=== PATIENT | female | born 1960 | race Caucasian/White ===

== ENCOUNTER → 2018-03-20 13:04 | Outpatient (CLI) | payer MEDICARE, SELFPAY ==
[2018-03-20 13:33] LABS: International Normalized Ratio 2.3; Prothrombin Time (Protime)PT. 25.4 SECONDS (11.7-14.9)
== END ==
PROVIDERS: Family Provider Internal Medicine; PCP Internal Medicine; Visit Provider Internal Medicine
DX: I26.99 Other pulmonary embolism without acute cor pulmonale (principal); Z51.81 Encounter for therapeutic drug level monitoring; Z79.01 Long term (current) use of anticoagulants
CPT/HCPCS: 85610

== ENCOUNTER 2021-09-30 14:02 | Outpatient (CLI) | payer MEDICARE, SELFPAY ==
--- NOTE | 2021-09-30 14:08 | US_ITS ---
STUDY: RENAL ULTRASOUND - COMPLETE REASON FOR EXAM: Female, 61 years old. UTI TECHNIQUE: Ultrasound evaluation of the kidneys was performed with real-time and static wallace-scale imaging. COMPARISON: None. FINDINGS: Study is limited by extremely large body habitus. RIGHT KIDNEY: Normal location of the right kidney, which is normal in size. The right kidney measures 10.8 x 6.4 x 5.5 cm. There is a normal cortex of the right kidney. The renal cortex measures 1.8 cm. In thickness There is no right renal mass or cyst. There are no right renal calculi. There is no right hydronephrosis. LEFT KIDNEY: Normal location of the left kidney, which is normal in size. The left kidney measures 11.3 x 5.6 x 6.6 cm. There is a normal cortex of the left kidney. The renal cortex measures 2.0 cm. In thickness There is no left renal mass or cyst. There are no left renal calculi. There is no left hydronephrosis. BLADDER: Not visualized. US/Kidney and Bladder IMPRESSION: Limited study due to body habitus. Normal size kidneys. No hydronephrosis. Electronically Signed: Virgilio Kwok MD at 1:44 EDT ,
== END 2021-09-30 23:59 | disposition home or self-care (01) ==
LOC: US 14:03
PROVIDERS: PCP Internal Medicine; Referring Provider Urology; Visit Provider Urology
DX: N39.0 Urinary tract infection, site not specified (principal)
CPT/HCPCS: 76770

== ENCOUNTER 2022-10-07 19:56 | Emergency (ER) | payer MEDICARE, SELFPAY ==
[2022-10-07 19:57] VITALS: PULSE 98; RESP 24; TEMP 36.6; O2SAT 96
[2022-10-07] MEDS: Mixture 30 ML Bottle TOPICAL (21:00)
[2022-10-07] MEDS: Silver Nitrate (BKC) 1 EACH TOPICAL (21:04)
[2022-10-07 21:06] LABS: Absolute Neutrophil Count 5.4 X10^3/uL (2.0-7.7); Basophil# 0.04 X10^3/uL; Basophil% 0.5 % (0-1); Eosinophil# 0.21 X10^3/uL; Eosinophils% 2.6 % (0-5); Hematocrit 47.3 % (37-47); Hemoglobin 15.6 g/dL (12.0-15.0); Lymphocyte % 21.4 % (19-41); Mean Corpuscular Hgb 28.6 pg (27.0-32.0); Mean Corpuscular Volume 86.8 fL (81-99); Mean Platelet Vol. 10.1 fl (6.2-12.0); Monocyte# 0.55 X10^3/uL; Monocyte% 6.9 % (0-10); NRBC Flagged by Analyzer 0 % (0-5); Neutrophil # 5.41 X10^3/uL (2.7-7.7); Neutrophil % 68.2 % (47-70); Platelet Count 288 K/mm3 (150-450); RBC Distribution Width CV 13.2 % (11.6-14.6); RBC Distribution Width SD 41.5 fl (35.1-43.9); Red Blood Count 5.45 M/mm3 (4.2-5.4); White Blood Count 7.9 K/mm3 (4.4-11.0)
[2022-10-07 21:21] LABS: International Normalized Ratio 2.3; Prothrombin Time (Protime)PT. 25.1 SECONDS (11.7-14.9)
--- NOTE | 2022-10-07 22:14 | EX.ED.DYSGE1 ---
HPI History of Present Illness Chief Complaint: Nosebleed Informant: patient Onset/Context/Timing Onset: Today Context: Sudden Onset Timing: Continuous Quality: Dark blood Location: Right nares Worsened by: Bending forward Relieved by: Nothing Narrative Narrative: Patient presents with epistaxis that began today. Patient states it began rather suddenly. Patient states it is mainly coming from the right nares. Patient states it is worse whenever she bends forward. Patient states she is on Coumadin for pulmonary embolism. Patient states her medication was adjusted recently. Patient denies any trauma or injury. Patient denies any fevers or chills. Patient denies any cough or shortness of breath. [facility] Medical History (Updated 10/07/22 @ 22:[address] Freddy Calloway, DO) Fibromyalgia Lupus Pulmonary embolism Rheumatoid arthritis Home Medications Losartan/Hydrochlorothiazide [Hyzaar 50-12.5 Tablet] 1 tab PO DAILY 09/10/15 [History Last Taken Unknown] cholecalciferol (vitamin D3) 25 mcg (1,000 unit) tablet (Vitamin D3) 2,000 unit PO DAILY 09/10/15 [History Last Taken Unknown] cyanocobalamin (vitamin B-12) 1,000 mcg sublingual tablet 5,000 mcg sublingual DAILY 09/10/15 [History Last Taken Unknown] fluoxetine 20 mg capsule 40 mg PO DAILY 09/10/15 [History Last Taken Unknown] insulin glargine 100 unit/mL (3 mL) subcutaneous pen (Lantus Solostar U-100 Insulin) 22 units subcut QHS 09/10/15 [History Last Taken 09/09/15] lactobacillus combo no.11 15 billion cell sprinkle capsule (Probiotic) 1 ea PO DAILY 09/10/15 [History Last Taken Unknown] lorazepam 1 mg tablet 1 mg PO DAILY PRN PANIC ATTACKS 09/10/15 [History Last Taken Unknown] oxycodone-acetaminophen 5 mg-325 mg tablet 1 tab PO DAILY PRN Pain 09/10/15 [History Last Taken Unknown] prednisone 5 mg tablet 5 mg PO DAILY PRN LUPUS 09/10/15 [History Last Taken Unknown] warfarin 5 mg tablet (Jantoven) 5 mg PO DAILY 09/10/15 [History Last Taken Unknown] zolpidem 10 mg tablet (Ambien) 10 mg PO QHS PRN Insomnia 09/10/15 [History Last Taken Unknown] Allergy/AdvReac Type Severity Reaction Status Date / Time enoxaparin sodium Allergy Hives Verified 10/07/22 20:11 [From Lovenox] heparin Allergy Itching Verified 10/07/22 20:11 hydrocodone bitartrate Allergy Itching Verified 10/07/22 20:11 [From Vicodin] Penicillins Allergy Hives Verified 10/07/22 20:11 Sulfa (Sulfonamide Allergy Itching Verified 10/07/22 20:11 Antibiotics) Surgical History H/O total hysterectomy History of appendectomy History of tonsillectomy Hx of cholecystectomy Social History Smoking Status: Never smoker ROS ROS ED Constitutional Constitutional ED: Denies chills or fever(s) Eyes Eyes: Denies blurry vision or change in vision ENT ENT ED: Reports epistaxis; Denies sore throat Cardiovascular Cardiovascular: Denies chest pain or palpitations Respiratory/Chest Respiratory/Chest: Denies cough or dyspnea Gastrointestinal Gastrointestinal: Denies nausea or vomiting Genitourinary Genitourinary ED: Denies dysuria or hematuria Musculoskeletal Musculoskeletal: Denies back pain or neck pain Integumentary Denies abscess or rash Neurologic Neurologic: Denies headache(s) or weakness Allergic/Immunologic Allergic/Immunologic ED: Denies mouth swelling or urticaria EXAM Physical Exam Const Vital Signs: 10/07/22 19:57 Temperature 98 F Temperature Source Temporal Pulse Rate 98 Respiratory Rate 24 H Pulse Ox 96 Oxygen Delivery Method Room Air Positive well nourished, well developed and obese General Appearance ED: well developed and NAD Nutritional Appearance: obese HEENT Reports moist mucous membranes HEENT Narrative: There is active bleeding from the right nares. It appears to be coming from somewhere posterior to the [place]el[place] plexus. There is no septal deviation or septal perforation. There does not appear to be any active bleeding from the left nares. There appears to be coming from the right nares around the nasopharynx. There is some bloody drainage in the posterior oropharynx. Neck supple and no JVD Neuro oriented x3, CN's II-XII intact bilaterally and no sensory deficits noted Sensorium / Orientation: alert Motor Exam: strength 5/5 throughout Psych mental status grossly normal Skin no rashes or lesions noted MDM MDM MDM Narrative Medical decision making narrative: Differential diagnosis includes epistaxis, anemia, and Coumadin induced coagulopathy. CBC will be obtained to assess for anemia and leukocytosis. PT with INR will be obtained to assess for coagulopathy. Lab Data Attestation: I reviewed the patient's lab results. Lab results narrative: CBC was reviewed. Hemoglobin was stable at 15.6 hematocrit was 47.3. Platelets were normal. PT with INR was reviewed. Pro time was 25.1. INR is 2.3. Labs: Laboratory Results - last 24 hr 10/07/22 10/07/22 21:00 21:00 WBC 7.9 RBC 5.45 H Hgb 15.6 H Hct 47.3 H MCV 86.8 MCH 28.6 MCHC 33.0 RDW Std Deviation 41.5 RDW Coeff of Lisha 13.2 Plt Count 288 MPV 10.1 Immature Gran % (Auto) 0.400 Neut % (Auto) 68.2 Lymph % (Auto) 21.4 Simpson % (Auto) 6.9 Eos % (Auto) 2.6 Baso % (Auto) 0.5 Absolute Neuts (auto) 5.4 Absolute Lymphs (auto) 1.70 Nucleated RBC % 0 PT 25.1 H INR 2.3 Treatment and Re-Evaluation :: Kwadwo solution was applied to cotton balls. These were inserted into the nares bilaterally. Bleeding slowed down. I was able to visualize the anterior nasal septum. The bleeding appeared to be coming from somewhere posterior to this. It was not pulsatile or brisk. Patient initially did not want a balloon packing because of the pain. Therefore, a small anterior rapid Rhino packing was placed in the right anterior nares. Patient was unable to tolerate this and accidentally pulled it out. Because of this, a 7.5 cm anterior posterior balloon nasal packing with airway was placed. The balloon was inflated for the patient's tolerance. There is no further epistaxis noted. Patient feels better and wants to go home. Patient was instructed to follow-up with her primary care physician in 3 to 5 days. Patient was also given referral for ENT follow-up in 2 days to have the packing removed. Patient was also instructed to return here if worse in any way. Patient understood and was agreeable with the plan. All questions were answered. Discharge Plan Triage Chief Complaint: Nosebleed ED Provider: Freddy Calloway Dx/Rx/DC Orders Clinical Impression: Epistaxis, Morbid obesity Instructions: ED Epistaxis (Adult) Prescriptions: No Action prednisone 5 MG tablet 5 mg PO DAILY PRN (Reason: LUPUS) oxycodone-acetaminophen 1 TABLET tablet 1 tab PO DAILY PRN (Reason: Pain) warfarin [Jantoven] 5 MG tablet 5 mg PO DAILY cyanocobalamin (vitamin B-12) 1,000 MCG tablet, sublingual 5,000 mcg sublingual DAILY lorazepam 1 MG tablet 1 mg PO DAILY PRN (Reason: PANIC ATTACKS) zolpidem [Ambien] 10 MG tablet 10 mg PO QHS PRN (Reason: Insomnia) fluoxetine 20 MG capsule 40 mg PO DAILY cholecalciferol (vitamin D3) [Vitamin D3] 1,000 UNIT tablet 2,000 unit PO DAILY lactobacillus combo no.11 [Probiotic] 1 EACH capsule, sprinkle 1 ea PO DAILY Losartan/Hydrochlorothiazide [Hyzaar 50-12.5 Tablet] 1 TAB tablet 1 tab PO DAILY insulin glargine [Lantus Solostar U-100 Insulin] 100 UNITS/ML insulin pen 22 units subcut QHS Primary Care Provider: Leonela Rai Referrals: Ish Burkett MD [Med Staff - Active Staff] - 2 Days Leonela Rai MD [Primary Care Provider] - 3-5 Days Disposition Disposition: Home, Self Care
[2022-10-07 22:24] VITALS: RESP 22
[2022-10-07 22:30] VITALS: BP 167/125; PULSE 107; RESP 20; O2SAT 94
[2022-10-07] MEDS: Morphine 4 MG/ML Syringe IM (22:36)
[2022-10-07 23:04] VITALS: PULSE 106; RESP 20; O2SAT 94
--- NOTE | 2022-10-07 23:05 | ED.RN ---
IM SITE CHECKED (RIGHT DELTOID) PT DENIES PAIN AT SITE PRIOR TO DISCHARGE. SITE P/W/D, COVERED WITH BANDAID.
== END 2022-10-07 23:11 | disposition home or self-care (01) ==
PROVIDERS: Emergency Provider Emergency Medicine; PCP Internal Medicine; Visit Provider Emergency Medicine
DX: R04.0 Epistaxis (principal); E66.01 Morbid (severe) obesity due to excess calories
CPT/HCPCS: 30901; 36415; 85025; 85610; 96372; 99282

== ENCOUNTER → 2022-11-23 | Outpatient (CLI) | payer MEDICARE, SELFPAY | END | disposition home or self-care (01) | LOC: CT 17:07 | PROVIDERS: PCP Internal Medicine; Referring Provider Urology; Visit Provider Urology | DX: N30.20 Other chronic cystitis without hematuria (principal); R31.0 Gross hematuria | CPT/HCPCS: 87086 ==

== ENCOUNTER 2024-05-15 10:43 | Outpatient (RCR) | payer MEDICARE, SELFPAY ==
[2024-05-15 12:33] LABS: International Normalized Ratio 2.4; Prothrombin Time (Protime)PT. 25.6 SECONDS (11.7-14.9)
== END 2024-06-02 18:00 | disposition home or self-care (01) ==
LOC: MTLAB 10:43
PROVIDERS: PCP Internal Medicine; Referring Provider Internal Medicine; Visit Provider Internal Medicine
DX: Z79.01 Long term (current) use of anticoagulants (principal)
CPT/HCPCS: 36415; 85610

== ENCOUNTER → 2024-11-28 | Outpatient (CLI) | payer MEDICARE, SELFPAY | END | disposition home or self-care (01) | LOC: SL 19:54 | PROVIDERS: PCP Internal Medicine; Referring Provider Nurse Practitioner Adult Health; Visit Provider Nurse Practitioner Adult Health | DX: G47.33 Obstructive sleep apnea (adult) (pediatric) (principal); G47.19 Other hypersomnia; G25.81 Restless legs syndrome; G47.61 Periodic limb movement disorder | CPT/HCPCS: 95810 ==

== ENCOUNTER 2025-03-20 13:40 | Outpatient (RCR) | payer MEDICARE, SELFPAY ==
[2025-03-20 15:43] LABS: Prothrombin Time (Protime)PT. 25.9 SECONDS (11.7-14.9)
[2025-04-12 19:35] LABS: Prothrombin Time (Protime)PT. 24.7 SECONDS (11.7-14.9)
== END 2025-04-12 14:07 | disposition home or self-care (01) ==
LOC: MTLAB 13:40
PROVIDERS: PCP Internal Medicine; Referring Provider Internal Medicine; Visit Provider Internal Medicine
DX: Z79.01 Long term (current) use of anticoagulants (principal)
CPT/HCPCS: 36415; 85610

== ENCOUNTER 2025-06-11 14:51 | Outpatient (RCR) | payer MEDICARE, SELFPAY ==
[2025-06-11 19:26] LABS: Prothrombin Time (Protime)PT. 26.4 SECONDS (11.7-14.9)
== END 2025-06-11 18:00 | disposition home or self-care (01) ==
LOC: MTLAB 14:51
PROVIDERS: PCP Internal Medicine; Referring Provider Internal Medicine; Visit Provider Internal Medicine
DX: Z79.01 Long term (current) use of anticoagulants (principal)
CPT/HCPCS: 36415; 85610